=== PATIENT | female | born 1980 | race Caucasian/White ===

== ENCOUNTER 2019-03-20 10:38 | Outpatient (CLI) | payer OTHER ==
--- NOTE | 2019-03-20 11:59 | ULT ---
SOFT TISSUE ULTRASOUND: Date: 03/20/19 HISTORY: Facial mass. COMPARISON: None. TECHNIQUE: Targeted sonographic imaging of the region of concern performed. Static images are reviewed. FINDINGS: There is a solid echotexture, predominantly hypoechoic mass, with well circumscribed borders, measuri ng 1.9 x 1.3 x 1.7 cm. Minimal vascular flow. Differential considerations include a complex cystic/in fected collection or possibly, to a lesser extent, solid mass. Further evaluation with a postcontrast CT may be beneficial. IMPRESSION: Hypoechoic mass with minimal vascularity as described above. A complex, possibly infected cystic francisco ection is favored. A small, solid mass lesion cannot be completely excluded. Correlate clinically. Fu rther evaluation with CT or facial MRI may be beneficial. POS: C
== END 2019-03-20 10:39 | disposition home or self-care (01) ==
LOC: SCSULT 10:38
PROVIDERS: ATTEND Nurse Practitioner Family
DX: R22.0 Localized swelling, mass and lump, head (principal)
CPT/HCPCS: 76999

== ENCOUNTER 2019-03-21 06:36 | Day surgery (SDC) | payer OTHER ==
[2019-03-20 10:22] VITALS: BMI 20.5
--- NOTE | 2019-03-20 10:28 | HP ---
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 There is no injury, but she does vigorous work in the oil field. She has pain with activities, but some pain that radiates into her thumb. She has had no relief with rest, restriction of activities, use of anti-inflammatory medications. PAST MEDICAL HISTORY: The patient is otherwise in good health and normally takes no routine medications. ALLERGIES: SHE IS ALLERGIC TO CODEINE. FAMILY HISTORY: Otherwise unremarkable. SOCIAL HISTORY: Otherwise unremarkable. REVIEW OF SYSTEMS: Otherwise unremarkable. PHYSICAL EXAMINATION: GENERAL: Reveals a healthy female. HEENT: Unremarkable. NECK: Supple. CHEST: Clear. HEART: Regular rate and rhythm. ABDOMEN: Soft, nontender. PELVIC: Deferred. RECTAL: Deferred. BREASTS: Deferred. EXTREMITIES: Pertinent findings in the left wrist. There is a 1 x 1 cm firm cystic mass over the volar radial aspect of the wrist, which is intimately associated with the radial artery. It is tender. There is a palpable radial pulse. There is full range of motion. There is no crepitus or instability. Negative Tinel sign. Negative Phalen test. Jeancarlos testing reveals satisfactory collateral flow. DIAGNOSTIC STUDIES: X-rays of the left wrist are normal. IMPRESSION: Volar carpal ganglion, left wrist. PLAN: Surgical excision. The nature of the surgery, length of recovery, and potential complications such as infection, loss of motion, incomplete relief, nerve injury, recurrence, need for additional treatment, repeat surgery have been discussed in detail. Job ID: [id number]
[2019-03-21] MEDS ORDERED: Bupivacaine PF 0.5% 30 ML VIAL ONE (08:32)
[2019-03-21] MEDS ORDERED: Fentanyl 100 MCG/2 ML VIAL ONE (08:45)
[2019-03-21] MEDS ORDERED: Midazolam HCl 2 mg/2 ml Vial ONE (08:45)
--- NOTE | 2019-03-21 11:23 | OP ---
DATE OF PROCEDURE: 03/21/2019 PREOPERATIVE DIAGNOSIS: Volar carpal ganglion, left wrist. POSTOPERATIVE DIAGNOSIS: Volar ganglion of flexor carpi radialis tendon sheath, left wrist. PROCEDURE PERFORMED: Excision of ganglion, left wrist. ANESTHESIA: General. OPERATIVE FINDINGS: There is a cystic mass, which appeared to be a typical ganglion coming off the volar aspect of the flexor tendon sheath of the flexor carpi radialis. It was intimately associated with the radial artery, but no involvement of the radial artery. It did not appear to enter the wrist joint. DESCRIPTION OF PROCEDURE: After satisfactory anesthesia was induced in supine position, the patient was prepped and draped in routine manner. The left arm was elevated and exsanguinated with an Esmarch bandage and the tourniquet was inflated to 200 mmHg. A 2-cm transverse incision was made over the wrist flexion crease over the palpable mass, carried down through the subcutaneous tissues. Bleeding points were controlled with Bovie cautery. Using sharp and blunt dissection, the mass was excised. It was inadvertently punctured during the dissection process, but it appeared that I removed the entire mass along with a window of the flexor tendon sheath of the flexor carpi radialis. This was sent to Pathology. The wound was inspected and appeared to be completely excised. The wound was thoroughly irrigated and the tourniquet was deflated after 10 minutes. There was no excessive bleeding. The radial artery appeared to be intact. The wound was then irrigated and closed with a running subcuticular 3-0 nylon. A sterile bulky compressive dressing was applied. The patient immobilized in a volar plaster splint. She was awakened and taken to recovery room in stable condition. There were no apparent intraoperative complications. The estimated blood loss was negligible. The patient will be discharged home in satisfactory condition, started on ice, elevation, and given written cast care instructions. She was given a prescription for tramadol for pain, 24 tablets. She will be rechecked in my office in approximately 2 weeks or sooner if there are any problems prior to that time. Job ID: [id number]
== END 2019-03-21 11:20 | disposition home or self-care (01) ==
LOC: SDC 06:36
PROVIDERS: ATTEND Orthopaedic Surgery
PROC: 0LB60ZZ Excision of Left Lower Arm and Wrist Tendon, Open Approach (ICD-10-PCS; principal; 2019-03-21)
DX: M67.432 Ganglion, left wrist (principal); F17.200 Nicotine dependence, unspecified, uncomplicated; Z88.5 Allergy status to narcotic agent
CPT/HCPCS: 88304; J0690; J2250; J3010; S0020